=== PATIENT | male | born 2000 | race Two or more races ===

== ENCOUNTER 2023-09-20 05:58 | Emergency (ER) | payer BC ==
[~2023-09-20] VITALS: Ht 182.9 cm; Wt 74.8 kg
[2023-09-20 10:41] LABS: HEMATOCRIT 45.5 % (39.0-48.0); HEMOGLOBIN 15.7 g/dL (13-16.00); MEAN CELL VOLUME 92.5 fL (80.0-100.00); MEAN CORPUSCULAR HGB CONC 34.5 g/dl (32.0-36.0); PLATELET COUNT 260 K/uL (150-450); RED BLOOD COUNT 4.92 M/uL (4.00-6.00); RED CELL DISTRIBUTION WIDTH 13.2 % (11.5-14.5)
[2023-09-20 12:02] LABS: ALBUMIN 4.3 gm/dL (3.4-5.0); BILIRUBIN TOTAL 1.05 mg/dL (0.3-1.2); CALCIUM 9.9 mg/dL (8.5-10.1); CREATININE SERUM 0.83 mg/dL (0.70-1.30); GFR 116.95; GLOBULINA 4.2 G/DL (2.4-3.5); POTASSIUM 3.79 mEq/L (3.5-5.1); TOTAL PROTEIN 8.5 gm/dL (6.4-8.2)
[2023-09-20 12:04] LABS: TSH 4.55 uIU/mL (0.358-3.74)
== END 2023-09-20 12:33 | disposition home or self-care (01) ==
LOC: ER 05:59
PROVIDERS: General Practice
DX: R07.89 Other chest pain (principal); Z20.822 Contact with and (suspected) exposure to COVID-19; Z91.013 Allergy to seafood